=== PATIENT | female | born 1985 | race Caucasian/White ===

== ENCOUNTER 2016-08-19 14:59 | Emergency (ER) | payer SELFPAY ==
--- NOTE | 2016-08-19 15:35 | EDPHY ---
General Narrative: CHIEF COMPLAINT: possible spider bite HISTORY OF PRESENT ILLNESS: patient reports some redness on the top of the left foot and on the distal left ankle. She noticed some redness from the area on Tuesday. Since then and is minimally spread but has become itchy and warm to the touch to her. No fluctuance or purulence described. No fevers or chills. No headache. No neck pain or stiffness. No rash elsewhere. She did not witness any bites of any kind. Pain is minimal. It is worse with palpation and movement. Some swelling when she walks but it resolved when she stops elevates the leg. No other associated complaints or modifying factors. Tetanus is up-to-date. REVIEW OF SYSTEMS: Ten systems reviewed and are negative unless otherwise noted in the HPI EXAMINATION General Appearance: Alert, no distress Cardiovascular: Pulses normal throughout. Symmetric DP pulses are 2+.Brisk cap refill Neurological: A&O, sensory symmetric, strength symmetric Skin: Warm and dry . Two points of erythema. There is 1 on the dorsal left foot that is approximately 2 cm in diameter. There is another 1 on the left lateral malleolus approximately 1.5 cm. 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 There is no fluctuance or purulence. No induration. Minimal erythema at the site with no surrounding cellulitis. Extremities: Nontender, no pedal edema . Full dorsiflexion plantar flexion of the left ankle. Neurovascular intact in the left lower extremity. Psychiatric: Mood and affect normal DIFFERENTIAL DIAGNOSES: Including but not limited to Cellulitis, vector inoculation, insect bite, contact dermatitis, allergic reaction MDM: 3:30 p.m. very mild area of cellulitis of the left foot and ankle. This looks as if she was bitten by an insect and less likely by spider. There is no evidence of abscess. There is no evidence of surrounding cellulitis. There is no spread above the actual areas of Suspected inoculation. No fever or chills. No target lesion or bull's eye lesions. No petechiae or purpura. Discharged home with Bactrim and Keflex. Follow up with primary care physician. Return here for worsening symptoms. Patient is comfortable with this plan and discharged home in stable condition ED Precautions: Worsening pain. Erythema, edema, cyanosis, pallor, paresthesia or anesthesia. SUPERVISION: This patient was independently evaluated without the aide of supervising physician. - History Smoking Status: Current every day smoker - Objective Vital Signs: Initial Vital Signs Temperature (C) 98.1 F 08/19/16 15:03 Heart Rate 74 08/19/16 15:03 Respiratory Rate 18 08/19/16 15:03 Blood Pressure 118/63 08/19/16 15:03 O2 Sat (%) 97 08/19/16 15:03 O2 Delivery Mode Room Air Allergies/Adverse Reactions: No Known Allergies Allergy (Unverified 08/19/16 15:03) Home Medications: Medication Instructions Recorded Cephalexin [Keflex (*)] 500 mg PO TID #30 cap 08/19/16 Sulfamethox/Tmp 800/160 mg 2 tab PO BID 10 Days 08/19/16 [Bactrim Ds] Departure - Departure Disposition: Home, Routine, Self-Care Clinical Impression: Foot infection Ankle abrasion, infected Qualifiers: Encounter type: initial encounter Laterality: left Qualified Code(s): S90.512A - Abrasion, left ankle, initial encounter; L08.9 - Local infection of the skin and subcutaneous tissue, unspecified Condition: Good Instructions: Cellulitis (ED) Additional Instructions: Antibiotics as discussed. Return here for worsening redness, swelling, headache , neck pain or stiffness or fever Referrals: NONE *PRIMARY CARE P,. [Primary Care Provider] - As per Instructions [facility],. [Clinic] - As per Instructions Rose Angelo MD [Medical Doctor] - As per Instructions Prescriptions: Cephalexin [Keflex (*)] 500 mg PO TID #30 cap Sulfamethox/Tmp 800/160 mg [Bactrim Ds] 2 tab PO BID 10 Days
[2016-08-19 16:21] VITALS: BP 107/64; PULSE 76; RESP 16; TEMP 98.6; O2SAT 96
== END 2016-08-19 16:20 | disposition home or self-care (01) ==
DX: L08.9 Local infection of the skin and subcutaneous tissue, unspecified (principal); S90.512A Abrasion, left ankle, initial encounter; F17.200 Nicotine dependence, unspecified, uncomplicated; X58.XXXA Exposure to other specified factors, initial encounter